=== PATIENT | male | born 1955 | race Caucasian/White ===

== ENCOUNTER 2017-11-12 21:13 | Emergency (ER) | payer MEDICAID ==
[2017-11-12 21:24] VITALS: BP 163/92
[2017-11-12] MEDS ORDERED: methylPREDNISolone Sodium Succinate 125 MG/2 ML SDV IM ONE (21:24)
[2017-11-12] MEDS ORDERED: EPINEPHrine 1 MG/ML SDV IM ONE (21:25)
--- NOTE | 2017-11-12 21:32 | EDM.PDOC ---
ED HPI GENERAL MEDICAL PROBLEM - General Chief Complaint: Skin Complaint Stated Complaint: hives, swelling Time Seen by Provider: 11/12/17 21:28 Source of Information: Reports: Patient History Limitations: Reports: No Limitations - History of Present Illness INITIAL COMMENTS - FREE TEXT/NARRATIVE: Patient was seen earlier today with complaints of hives, throat swelling and difficulty breathing. He was given a prescription for prednisone 20 mg daily for a week. It appears he is shown allergy symptoms, but he is unaware what is causing this. This has been intermittent over the last several days. No new exposure, or foods that he is aware of. He does have a right lower leg cellulitis that he has been receiving antibiotics for. He is no longer taking these. He has no other complaints today and is feeling better as he took 50 mg of benadryl at around 2000. Swelling is better. He reports that these attacks are not directly after eating but more likely 1-2 hours post prandial, he has been waking in the morning with urticaria and hives with no reported change in detergent or soaps. 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) - Related Data Allergies Allergy/AdvReac Type Severity Reaction Status Date / Time Exdsevz-Hwu-Gge Reductase AdvReac Muscle Verified 11/12/17 21:32 Inhibitor Aches Home Meds: Home Meds Aspirin 325 mg PO DAILY 09/02/17 [History] Benazepril/Hydrochlorothiazide [Benazepril-HCTZ 20-12.5 MG] 1 tab PO BID [History] LORazepam [Ativan] 0.5 mg PO Q4HR PRN 09/02/17 [History] Olopatadine [Patanol 0.1% Ophth Soln] 1 drop EYEBOTH BID 09/02/17 [History] amLODIPine [Norvasc] 5 mg PO BID 09/02/17 [History] Past Medical History Cardiovascular History: Reports: Syncope Genitourinary History: Reports: Pyelonephritis, Other (See Below) Other Genitourinary History: Kidney stones Musculoskeletal History: Reports: Arthritis, Back Pain, Chronic - Infectious Disease History Infectious Disease History: Reports: Chicken Pox - Past Surgical History Cardiovascular Surgical History: Reports: None GI Surgical History: Reports: Colonoscopy Male Surgical History: Reports: None Other Musculoskeletal Surgeries/Procedures:: back surgery Social & Family History - Family History Family Medical History: Noncontributory - Tobacco Use Smoking Status *Q: Never Smoker Second Hand Smoke Exposure: No - Caffeine Use Caffeine Use: Reports: Coffee, Soda - Recreational Drug Use Recreational Drug Use: No ED ROS GENERAL - Review of Systems Review Of Systems: See Below Constitutional: Reports: No Symptoms HEENT: Reports: Throat Swelling Respiratory: Reports: No Symptoms Cardiovascular: Reports: No Symptoms Endocrine: Reports: No Symptoms GI/Abdominal: Reports: No Symptoms : Reports: No Symptoms Musculoskeletal: Reports: No Symptoms Skin: Reports: No Symptoms Neurological: Reports: No Symptoms Psychiatric: Reports: No Symptoms Hematologic/Lymphatic: Reports: No Symptoms Immunologic: Reports: No Symptoms ED EXAM, SKIN/RASH Exam: See Below Exam Limited By: No Limitations General Appearance: Alert, WD/WN, No Apparent Distress Eye Exam: Bilateral Eye: EOMI, PERRL Ears: Normal TMs Nose: Normal Inspection, Normal Mucosa, No Blood Throat/Mouth: Normal Inspection, Normal Lips, Normal Teeth, Normal Gums, Normal Oropharynx, Normal Voice, No Airway Compromise Head: Atraumatic, Normocephalic Neck: Lymphadenopathy (L) Respiratory/Chest: No Respiratory Distress, Lungs Clear, Normal Breath Sounds, No Accessory Muscle Use, Chest Non-Tender Cardiovascular: Normal Peripheral Pulses, Regular Rate, Rhythm, No Edema, No Gallop, No JVD, No Murmur, No Rub GI/Abdominal: Normal Bowel Sounds, Soft, Non-Tender, No Organomegaly, No Distention, No Abnormal Bruit, No Mass Extremities: Normal Inspection, Normal Range of Motion, Non-Tender, No Pedal Edema, Normal Capillary Refill Neurological: Alert, Oriented, CN II-XII Intact, Normal Cognition, Normal Gait, Normal Reflexes, No Motor/Sensory Deficits Psychiatric: Normal Affect, Normal Mood Skin: Warm, Dry, Intact, Normal Color, No Rash Lymphatic: Adenopathy (left cervical adenopathy) Course - Vital Signs Last Recorded V/S: Last Vital Signs Temp 36.7 C 11/12/17 21:19 Pulse 80 11/12/17 21:19 Resp 18 11/12/17 21:19 BP 163/92 H 11/12/17 21:19 Pulse Ox 99 11/12/17 21:19 - Orders/Labs/Meds Orders: Active Orders 24 hr Category Date Time Status EPINEPHrine [Adrenalin] Med 11/12/17 21:25 Once 0.5 mg IM ONETIME ONE methylPREDNISolone Sod Succ [Solu-MEDROL] Med 11/12/17 21:24 Once 125 mg IM ONETIME ONE - Re-Assessments/Exams Free Text/Narrative Re-Assessment/Exam: 11/12/17 21:33 patient given IM injections of solu-medrol and epinephrine. Has already taken 50 mg of Benadryl. will observe for now. Departure - Departure Time of Disposition: 22:43 Disposition: Home, Self-Care 01 Condition: Good Clinical Impression: Urticaria, Hypersensitivity reaction - Discharge Information Instructions: Anaphylactic Reaction, [id number], Allergies Additional Instructions: Please call your provider in the morning to relay to him what happened tonight. I gave you 125 mg of solumedrol and 0.3 mg of epinephrine as IM injections. You also took 50 mg of benadryl before coming to the ED. He may want to run additional tests to determine the cause of these reactions. Please call us with any questions or concerns in the meantime. - Problem List & Annotations (1) Hypersensitivity reaction SNOMED Code(s): 551807542 Code(s): T78.40XA - ALLERGY, UNSPECIFIED, INITIAL ENCOUNTER Status: Acute Priority: Medium Current Visit: Yes Qualifiers: Encounter type: initial encounter Qualified Code(s): T78.40XA - Allergy, unspecified, initial encounter (2) Urticaria SNOMED Code(s): 029766439 Code(s): L50.9 - URTICARIA, UNSPECIFIED Status: Acute Priority: Medium Current Visit: Yes - Problem List Review Problem List Initiated/Reviewed/Updated: Yes - My Orders Last 24 Hours: My Active Orders 11/12/17 21:24 methylPREDNISolone Sod Succ [Solu-MEDROL] 125 mg IM ONETIME ONE 11/12/17 21:25 EPINEPHrine [Adrenalin] 0.5 mg IM ONETIME ONE - Assessment/Plan Last 24 Hours: My Active Orders 11/12/17 21:24 methylPREDNISolone Sod Succ [Solu-MEDROL] 125 mg IM ONETIME ONE 11/12/17 21:25 EPINEPHrine [Adrenalin] 0.5 mg IM ONETIME ONE Assessment:: hypersensitivity reaction of unknown etiology Plan: Please call your provider in the morning to relay to him what happened tonight. I gave you 125 mg of solumedrol and 0.3 mg of epinephrine as IM injections. You also took 50 mg of benadryl before coming to the ED. He may want to run additional tests to determine the cause of these reactions. Please call us with any questions or concerns in the meantime.
== END 2017-11-12 22:45 | disposition home or self-care (01) ==
LOC: VM.ED 21:13
DX: L50.9 Urticaria, unspecified (principal); T78.40XA Allergy, unspecified, initial encounter; Z88.8 Allergy status to other drugs, medicaments and biological substances; Z79.82 Long term (current) use of aspirin
CPT/HCPCS: 96372; 99283; J0171; J2930